=== PATIENT | male | born 1940 | race Caucasian/White ===

== ENCOUNTER 2017-09-30 10:42 | Emergency (ER) | payer MEDICARE, OTHER ==
--- NOTE | 2017-09-30 11:33 | RAD ---
RIGHT WRIST THREE VIEWS: History: Fall. Right wrist injury. FINDINGS: Comminuted mildly impacted intraarticular fracture of the distal radius includes exaggerated inclinat ion. Sagittal component to the articular surface of the radius at the scapholunate joint shows no sig nificant step off or gap. Nondisplaced coronal oriented fracture to the mid portion of the articular surface distal radius shows 0.1 cm gap and no significant step off. Scaphoid waist is intact. Old unu nited ossific avulsion of the ulnar styloid is apparent. There are arthritic changes of the first car pal metacarpal joint. IMPRESSION: Comminuted intraarticular mildly angulated fracture distal right radius. POS: [facility]
--- NOTE | 2017-09-30 12:23 | CT ---
CT OF THE CERVICAL SPINE WITHOUT CONTRAST: Date: 09/30/17 INDICATION: History of neck pain after slipping and falling while jumping on a board in the pool. Patient fell, c aught himself with his right hand and heard a pop. The patient has had extra neck soreness since the fall. COMPARISON: Radiographs of the cervical spine dated 09/07/15. 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 There is slight posterior translation of C3 on C4, which is likely degenerative in nature. No definit e acute fracture is demonstrated. The craniocervical junction is normal appearing. At C2-C3, there is uncovertebral hypertrophy and facet joint degenerative change inducing mild left n eural foraminal narrowing. At C3-4, there is uncovertebral hypertrophy and facet joint degenerative change inducing moderate rig ht neural foraminal narrowing. At C4-5, there is moderate facet joint degenerative change. At C5-6, there is no appreciable osseous or central canal neural foraminal narrowing. At C6-7, there is uncovertebral hypertrophy with facet joint degenerative change inducing likely mild bilateral osseous neural foraminal narrowing. At C7-T1, there is facet joint degenerative change with slight anterior translation of C7 on T1. No d efinite osseous central canal or neural foraminal narrowing is demonstrated. Lung apices demonstrate some subsegmental volume loss within the left upper lobe. There are mild vascular calcifications involving the aortic arch. Prevertebral soft tissues are withi n normal limits. IMPRESSION: 1. No acute fracture or subluxation demonstrated. 2. 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 3. Mild to moderate osseous neural foraminal narrowing as detailed above. POS: [facility]
== END 2017-09-30 14:35 | disposition home or self-care (01) ==
LOC: ERS 10:42
DX: S52.571A Other intraarticular fracture of lower end of right radius, initial encounter for closed fracture (principal); S52.301A Unspecified fracture of shaft of right radius, initial encounter for closed fracture; K21.9 Gastro-esophageal reflux disease without esophagitis; F32.9 Major depressive disorder, single episode, unspecified; Z79.899 Other long term (current) drug therapy; W17.89XA Other fall from one level to another, initial encounter; Y93.11 Activity, swimming; Y92.34 Swimming pool (public) as the place of occurrence of the external cause
CPT/HCPCS: 25500; 72125